=== PATIENT | female | born 1935 | race Caucasian/White ===

== ENCOUNTER 2020-01-25 08:20 | Day surgery (SDC) | payer MEDICARE, OTHER ==
[~2020-01-25 08:20] MED LIST: Lactated Ringers 1,000 ML IV SCH
[2020-01-25] MEDS ORDERED: Propofol 200 MG/20 ML SDV ONE ×2 (09:48→10:34)
--- NOTE | 2020-01-25 11:55 | OR ---
PREOPERATIVE DIAGNOSIS: History of colon polyps. POSTOPERATIVE DIAGNOSIS: Colon polyps. PROCEDURE PERFORMED: Total flexible colonoscopy with biopsies. ANESTHESIA: MAC anesthesia. COMPLICATIONS: None apparent. BLOOD LOSS: Minimal. FINDINGS: Rectal polyps x4, 1-2 mm, cold forceps. START TIME: 1025. CECUM TIME: 1035. STOP TIME: 1049. BOWEL PREP: [place] class 3. INDICATION FOR PROCEDURE: Ms. Stevenson is an 84-year-old female who has a history of colon polyps. Her last scope was 4 years ago in [place] for which we do not have any records. She does not have bloody or dark black stools, but does have some chronic constipation. Her grandmother had colorectal cancer in her 80s. DETAILS OF PROCEDURE: After informed consent was obtained, the patient was brought to the procedure room and placed in left lateral decubitus position. MAC anesthesia was induced by Anesthesia colleagues. The colonoscope was introduced into the rectum and advanced all the way to the cecum. She had a somewhat redundant colon and so brief abdominal pressure was used for assistance in reaching the cecum. The appendiceal orifice and ileocecal valve were photographed. The colonoscope was then slowly withdrawn. No pathology was identified other than what is mentioned in the findings section. A retroflexed view was obtained and the colonoscope was removed. The patient was awoken from anesthesia by Anesthesia colleagues without incident. PATHOLOGY: Colon, rectal polyp Hyperplastic polyps Recommend discontinuing colorectal cancer screening given age of 84. RKM: 01/25/2020 10:54:43 MODL: 01/25/2020 11:16:54 /[id number] MTDBert
--- NOTE | 2020-02-04 08:22 | LETTER ---
02/01/2020 Elvis Elva [address] [place] [address] RE: ELVIS KEE ELVA : 1935 Dear Ms. Dixonalicia: I am writing to inform you of the pathology results from your recent colonoscopy. You had 4 hyperplastic polyps. Hyperplastic polyps are completely benign and are not considered precancerous. Given your age of 84, I recommend that you discontinue colorectal cancer screening. I do not feel that additional screening colonoscopies are necessary. If you have any questions about this, you may call me at the [facility] or discuss this with your primary care provider. Warmest regards,
== END 2020-01-25 11:41 | disposition home or self-care (01) ==
LOC: VM.SDS 08:20
PROVIDERS: ATTEND Student in an Organized Health Care Education/Training Program
DX: Z12.11 Encounter for screening for malignant neoplasm of colon (principal); K62.1 Rectal polyp; E03.4 Atrophy of thyroid (acquired); K59.09 Other constipation; K57.30 Diverticulosis of large intestine without perforation or abscess without bleeding; E78.49 Other hyperlipidemia; Z01.812 Encounter for preprocedural laboratory examination; Z20.828 Contact with and (suspected) exposure to other viral communicable diseases; Z79.899 Other long term (current) drug therapy; Z79.82 Long term (current) use of aspirin; Z86.73 Personal history of transient ischemic attack (TIA), and cerebral infarction without residual deficits; Z88.8 Allergy status to other drugs, medicaments and biological substances; Z98.890 Other specified postprocedural states
CPT/HCPCS: 00812; 45380; J2704; J7120; U0002; 88305

== ENCOUNTER 2020-07-14 18:51 | Emergency (ER) | payer MEDICARE, OTHER ==
[2020-07-14] MEDS ORDERED: Sodium Chloride 0.9% 10 ML Syringe FLUSH PRN (19:25)
[2020-07-14] MEDS ORDERED: LORazepam 2 MG/ML SDV IVPUSH ONE (19:27)
[2020-07-14] MEDS ORDERED: Meclizine 25 MG Tab PO ONE (19:28)
[2020-07-14 20:02] LABS: PTT,PARTIAL THROMBOPLSTIN TIME 23.2 SEC (25.6-32.8)
[2020-07-14 20:16] LABS: CHLORIDE,CL 105 mmol/L (98-107); SODIUM,NA 142 mmol/L (136-145)
[2020-07-14 20:21] LABS: ANION GAP 11.6 mmol/L (5-15)
--- NOTE | 2020-07-14 20:28 | EDM.PDOC ---
ED HPI GENERAL MEDICAL PROBLEM - General Chief Complaint: Cardiovascular Problem Stated Complaint: DOESN'T FELL GOOD Time Seen by Provider: 07/14/20 18:55 Source of Information: Reports: Patient History Limitations: Reports: No Limitations - History of Present Illness INITIAL COMMENTS - FREE TEXT/NARRATIVE: Pt. presents to ER with complaints of vertigo that started this evening. Pt. states that she has never experienced this is the past. Denies any chest pain or shortness of breath. No palpitations. Denies any nausea, vomiting, or diarrhea. Pt. states that she has a history of TIA in the past. Denies any numbness/tingling in extremities. No problems with speech/ambulation. Denies any vision loss or change. Pt. denies any GIMENEZ or orthopnea. She does have a history of dyslipidemia. Onset: Today Onset Date: 07/14/20 Location: Reports: Generalized Associated Symptoms: Denies: Confusion, Chest Pain, Diaphoresis, Fever/Chills, Headaches, Loss of Appetite, Nausea/Vomiting, Shortness of Breath, Syncope - Related Data Allergies Allergy/AdvReac Type Severity Reaction Status Date / Time simvastatin Allergy Muscle Verified 01/25/20 08:39 Aches Home Meds: Home Meds Aspirin [Aspirin EC] 81 mg PO DAILY 01/03/20 [History] Cholecalciferol (Vitamin D3) [Vitamin D3] 1,000 unit PO DAILY 01/03/20 [History] Cider Vinegar [Apple Cider Vinegar] 500 mg PO DAILY 01/03/20 [History] Cinnamon Bark [Cinnamon] 500 mg PO DAILY 01/03/20 [History] Levothyroxine [Synthroid] 100 mcg PO ACBREAKFAST 01/03/20 [History] Lutein/Minerals/Vit A,C & E [Ocuvite] 1 tab PO DAILY 01/03/20 [History] Magnesium 200 mg PO DAILY 01/03/20 [History] Multivitamin [Multivitamins] 1 each PO DAILY 01/03/20 [History] Non-Formulary Medication [NF Drug] 1 each PO DAILY 01/03/20 [History] Ubidecarenone [Co Q-10] 200 mg PO DAILY 01/03/20 [History] Acetaminophen 500 mg PO Q4H PRN 06/30/20 [History] Rosuvastatin [Crestor] 5 mg PO DAILY 06/30/20 [History] Past Medical History Cardiovascular History: Reports: High Cholesterol Gastrointestinal History: Reports: Colon Polyp, Diverticulosis Neurological History: Reports: TIA Endocrine/Metabolic History: Reports: Hypothyroidism - Past Surgical History HEENT Surgical History: Reports: Cataract Surgery Female Surgical History: Reports: Breast Biopsy, Hysterectomy Endocrine Surgical History: Reports: Thyroidectomy Neurological Surgical History: Reports: Other (See Below) 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 Denies: Fever, Chills, Malaise, Weakness, Fatigue HEENT: Reports: Vertigo, Other (complains of R sided ear fullness.) Cardiovascular: Reports: No Symptoms. Denies: Chest Pain, Claudication, Dyspnea on Exertion, Edema, Lightheadedness, Orthopnea, Palpitations, PND Endocrine: Reports: No Symptoms GI/Abdominal: Reports: No Symptoms : Reports: No Symptoms Musculoskeletal: Reports: No Symptoms Skin: Reports: No Symptoms Neurological: Reports: No Symptoms Psychiatric: Reports: No Symptoms Hematologic/Lymphatic: Reports: No Symptoms Immunologic: Reports: No Symptoms ED EXAM, GENERAL - Physical Exam Exam: See Below Exam Limited By: No Limitations General Appearance: Alert, WD/WN, No Apparent Distress Nose: Normal Inspection, Normal Mucosa, No Blood Throat/Mouth: Normal Inspection, Normal Lips, Normal Teeth, Normal Gums, Normal Oropharynx, Normal Voice Head: Atraumatic, Normocephalic Neck: Normal Inspection, Supple, Non-Tender, Full Range of Motion Respiratory/Chest: No Respiratory Distress, Lungs Clear, Normal Breath Sounds, No Accessory Muscle Use, Chest Non-Tender Cardiovascular: Normal Peripheral Pulses, Regular Rate, Rhythm, No Edema, No JVD, No Murmur Peripheral Pulses: 4+: Radial (R) GI/Abdominal: Soft, Non-Tender, No Distention, No Mass (Female) Exam: Deferred Rectal (Female) Exam: Deferred Back Exam: Normal Inspection, Full Range of Motion Extremities: Normal Inspection, Normal Range of Motion, Non-Tender, No Pedal Edema, Normal Capillary Refill Neurological: Alert, Oriented, CN II-XII Intact, Normal Cognition, Normal Gait, Normal Reflexes, No Motor/Sensory Deficits, Other (speech is fluent. No pronator drift.) Psychiatric: Normal Affect, Normal Mood Skin Exam: Warm, Dry, Intact, Normal Color, No Rash Lymphatic: No Adenopathy Course - Vital Signs Last Recorded V/S: Last Vital Signs Temp 36.8 C 07/14/20 18:55 Pulse 64 07/14/20 18:55 Resp 14 07/14/20 18:55 BP 170/80 H 07/14/20 18:55 Pulse Ox 97 07/14/20 18:55 - Orders/Labs/Meds Orders: Active Orders 24 hr Category Date Time Status EKG Documentation Completion [RC] STAT Care 07/14/20 19:25 Active Chest 1V Frontal [CR] Stat Exams 07/14/20 21:01 Ordered Head wo Cont [CT] Stat Exams 07/14/20 19:25 Stop Req CBC W/O DIFF,HEMOGRAM [HEME] Q3D Lab 07/15/20 07:00 Ordered CBC W/O DIFF,HEMOGRAM [HEME] Q3D Lab 07/18/20 07:00 Ordered CBC W/O DIFF,HEMOGRAM [HEME] Q3D Lab 07/21/20 07:00 Ordered CBC W/O DIFF,HEMOGRAM [HEME] Q3D Lab 07/24/20 07:00 Ordered CBC W/O DIFF,HEMOGRAM [HEME] Q3D Lab 07/27/20 07:00 Ordered CBC W/O DIFF,HEMOGRAM [HEME] Q3D Lab 07/30/20 07:00 Ordered CBC W/O DIFF,HEMOGRAM [HEME] Q3D Lab 08/02/20 07:00 Ordered CORONAVIRUS COVID-19 RAPID [MOLEC] Stat Lab 07/14/20 21:00 Ordered Heparin Sodium/0.45% NaCl [Heparin 25,000 Units in 1/2 Med 07/14/20 21:01 Active NS 500 ML] 25,000 units in 500 ml IV SEECOMMENT Sodium Chloride 0.9% [Saline Flush] Med 07/14/20 19:25 Active 10 ml FLUSH ASDIRECTED PRN Peripheral IV Insertion Adult [OM.PC] Routine Oth 07/14/20 19:26 Ordered Medication Orders Heparin Sodium/Sodium Chloride (Heparin 25,000 Units In 1/2 Ns 500 Ml) 25,000 units in 500 mls @ 20 mls/hr IV SEECOMMENT STA; Protocol Stop: 05/11/21 22:00 Sodium Chloride (Sodium Chloride 0.9% 10 Ml Syringe) 10 ml FLUSH ASDIRECTED PRN PRN Reason: Keep Vein Open Labs: Laboratory Tests 07/14/20 07/14/20 07/14/20 Range/Units 19:37 19:37 19:37 WBC 5.1 (4.0-10.0) x10^3/uL RBC 4.06 (4.00-5.50) x10^6/uL Hgb 12.9 (12.0-16.0) g/dL Hct 38.5 (33.0-47.0) % MCV 94.8 H (78.0-93.0) fL MCH 31.8 (26.0-32.0) pg MCHC 33.5 (32.0-36.0) g/dL RDW Coeff of [place] 13.9 (10.0-15.0) % Plt Count 238 (130-400) x10^3/uL Neut % (Auto) 51.6 (50.0-80.0) % Lymph % (Auto) 36.4 (25.0-50.0) % [place] % (Auto) 9.0 (2.0-11.0) % Eos % (Auto) 2.0 (0.0-4.0) % Baso % (Auto) 1.0 (0.2-1.2) % PT 11.0 (9.9-12.5) SEC INR 1.0 L (2.0-3.5) APTT 23.2 L (25.6-32.8) SEC Sodium 142 (136-145) mmol/L Potassium 3.6 (3.5-5.1) mmol/L Chloride 105 (98-107) mmol/L Carbon Dioxide 29 (21-32) mmol/L Anion Gap 11.6 (5-15) mmol/L BUN 19 H (7-18) mg/dL Creatinine 1.1 H (0.55-1.02) mg/dL Est Cr Clr Drug Dosing 33.46 mL/min Estimated GFR (MDRD) 47 Glucose 137 H (70-99) mg/dL Calcium 9.0 (8.5-10.1) mg/dL Corrected Calcium 9.4 (8.5-10.1) mg/dL Magnesium 2.0 (1.8-2.4) mg/dL Total Bilirubin 0.5 (0.2-1.0) mg/dL AST 21 (15-37) U/L ALT 32 (14-59) U/L Alkaline Phosphatase 61 (46-116) U/L Troponin I High Sens 87 H* (<=51) ng/L C-Reactive Protein < 0.2 (<=0.9) mg/dL Total Protein 6.6 (6.4-8.2) g/dL Albumin 3.5 (3.4-5.0) g/dL Globulin 3.1 Albumin/Globulin Ratio 1.13 Meds: Medications Generic Name Dose Route Start Last Admin Trade Name Freq PRN Reason Stop Dose Admin Heparin Sodium/Sodium Chloride 25,000 units in 500 mls @ 20 mls/hr 07/14/20 21:01 Heparin 25,000 Units In 1/2 Ns 500 Ml IV 07/15/20 22:00 SEECOMMENT STA Protocol 1,000 UNITS/HR Sodium Chloride 10 ml 07/14/20 19:25 Sodium Chloride 0.9% 10 Ml Syringe FLUSH ASDIRECTED PRN Keep Vein Open Discontinued Medications Generic Name Dose Route Start Last Admin Trade Name Freq PRN Reason Stop Dose Admin Aspirin 324 mg 07/14/20 20:31 Aspirin 81 Mg Tab.Chew PO 07/14/20 20:32 ONETIME ONE Heparin Sodium (Porcine) 4,000 units 07/14/20 21:01 Heparin Sodium 5,000 Units/Ml Vial IVPUSH 07/14/20 21:02 .BOLUS ONE Lorazepam 1 mg 07/14/20 19:27 Lorazepam 2 Mg/Ml Sdv IVPUSH 07/14/20 19:28 STAT ONE Meclizine HCl 25 mg 07/14/20 19:28 Meclizine 25 Mg Tab PO 07/14/20 19:29 DAILY ONE Departure - Departure Time of Disposition: 21:16 Disposition: DC/Tfer to Acute Hospital 02 Reason for Transfer *Q: Other Clinical Impression: NSTEMI (non-ST elevated myocardial infarction) Referrals: Cynthia Mackey DO [Primary Care Provider] - Forms: ED Department Discharge Sepsis Event Note (ED) - Evaluation Sepsis Screening Result: No Definite Risk - Focused Exam Vital Signs: Vital Signs Temp Pulse Resp BP Pulse Ox 07/14/20 18:55 36.8 C 64 14 170/80 H 97 - Problem List Review Problem List Initiated/Reviewed/Updated: Yes - My Orders Last 24 Hours: My Active Orders 07/14/20 19:25 EKG Documentation Completion [RC] STAT Head wo Cont [CT] Stat Sodium Chloride 0.9% [Saline Flush] 10 ml FLUSH ASDIRECTED PRN 07/14/20 19:26 Peripheral IV Insertion Adult [OM.PC] Routine 07/14/20 21:00 CORONAVIRUS COVID-19 RAPID [MOLEC] Stat 07/14/20 21:01 Chest 1V Frontal [CR] Stat Heparin Sodium/0.45% NaCl [Heparin 25,000 Units in 1/2 NS 500 ML] 25,000 units in 500 ml IV SEECOMMENT 07/15/20 07:00 CBC W/O DIFF,HEMOGRAM [HEME] Q3D 07/18/20 07:00 CBC W/O DIFF,HEMOGRAM [HEME] Q3D 07/21/20 07:00 CBC W/O DIFF,HEMOGRAM [HEME] Q3D 07/24/20 07:00 CBC W/O DIFF,HEMOGRAM [HEME] Q3D 07/27/20 07:00 CBC W/O DIFF,HEMOGRAM [HEME] Q3D 07/30/20 07:00 CBC W/O DIFF,HEMOGRAM [HEME] Q3D 08/02/20 07:00 CBC W/O DIFF,HEMOGRAM [HEME] Q3D - Assessment/Plan Last 24 Hours: My Active Orders 07/14/20 19:25 EKG Documentation Completion [RC] STAT Head wo Cont [CT] Stat Sodium Chloride 0.9% [Saline Flush] 10 ml FLUSH ASDIRECTED PRN 07/14/20 19:26 Peripheral IV Insertion Adult [OM.PC] Routine 07/14/20 21:00 CORONAVIRUS COVID-19 RAPID [MOLEC] Stat 07/14/20 21:01 Chest 1V Frontal [CR] Stat Heparin Sodium/0.45% NaCl [Heparin 25,000 Units in 1/2 NS 500 ML] 25,000 units in 500 ml IV SEECOMMENT 07/15/20 07:00 CBC W/O DIFF,HEMOGRAM [HEME] Q3D 07/18/20 07:00 CBC W/O DIFF,HEMOGRAM [HEME] Q3D 07/21/20 07:00 CBC W/O DIFF,HEMOGRAM [HEME] Q3D 07/24/20 07:00 CBC W/O DIFF,HEMOGRAM [HEME] Q3D 07/27/20 07:00 CBC W/O DIFF,HEMOGRAM [HEME] Q3D 07/30/20 07:00 CBC W/O DIFF,HEMOGRAM [HEME] Q3D 08/02/20 07:00 CBC W/O DIFF,HEMOGRAM [HEME] Q3D Plan: [place] has no available bed space. Pt. was accepted at [facility] in [place] by Dr. Wheatley. Pt. is a code 1. Pt. was started on heparin drip at 1000u/hr and was given a heparin bolus at 4000 u IV. Covid 19 and chest x-ray results are pending.
[2020-07-14] MEDS ORDERED: Aspirin 81 MG Tab.Chew PO ONE (20:31)
[2020-07-14] MEDS ORDERED: Heparin Sodium 5,000 Units/ML Vial IVPUSH ONE (21:01)
[2020-07-14] MEDS ORDERED: Heparin Sodium/0.45% NaCl 25,000 UNITS/500 ML BAG IV STA (21:01)
--- NOTE | 2020-07-15 07:38 | CR ---
[id number] RAD/RAD Chest Portable EXAM: PORTABLE CHEST INDICATION: NSTEMI COMPARISON: None. DISCUSSION: There is cardiomegaly without evidence of edema. Mild linear scarring, atelectasis or fibrosis in the lung bases. Hyperinflation suggests underlying COPD. No effusions. IMPRESSION: 1. Cardiomegaly without evidence of congestive heart failure. Shawn Lincoln MD 07/15/20 0737 Thank you for allowing us to participate in the care of your patient.
== END 2020-07-14 22:00 | disposition short-term general hospital (02) ==
LOC: VM.ED 18:51
DX: I21.4 Non-ST elevation (NSTEMI) myocardial infarction (principal); E03.9 Hypothyroidism, unspecified; E78.00 Pure hypercholesterolemia, unspecified; Z88.8 Allergy status to other drugs, medicaments and biological substances; Z79.82 Long term (current) use of aspirin; Z20.822 Contact with and (suspected) exposure to COVID-19; Z79.899 Other long term (current) drug therapy
CPT/HCPCS: 36415; 71045; 80053; 83735; 84484; 85025; 85610; 85730; 86140; 93005; 96365; 96375; 99284; 99285-25; A9270-GY; J1644; J2060; U0002

== ENCOUNTER 2022-05-27 08:48 | Inpatient (IN) | payer MEDICARE, OTHER ==
[2022-05-27 09:34] LABS: ANION GAP 12.3 mmol/L (5-15); CHLORIDE,CL 106 mmol/L (98-107); ESTIMATED GFR 55 mL/min (>=60); SODIUM,NA 141 mmol/L (136-145)
[2022-05-27] MEDS: Ondansetron 4 MG/2 ML SDV ONE ×3 (09:45→11:09)
[2022-05-27] MEDS ORDERED: Iopamidol 755 Mg/ML 100 ML Bottle IVPUSH ONE (09:57)
[2022-05-27] MEDS ORDERED: Ondansetron 4 MG/2 ML SDV IVPUSH ONE (10:21)
[2022-05-27] MEDS ORDERED: Potassium Chloride 10 MEQ Tab.ER PO ONE (13:15)
[2022-05-27 15:35] LABS: ANION GAP 13.8 mmol/L (5-15)
[2022-05-27] MEDS: Acetaminophen 325 MG Tab PO PRN (17:30)
[2022-05-27] MEDS: Omeprazole 20 MG Cap.CR PO SCH (20:06)
[2022-05-27] MEDS: Ondansetron 4 MG Tab.DIS PO PRN (20:06)
[2022-05-28] MEDS: Acetaminophen 500 MG Tab PO PRN ×2 (00:46→13:27)
[2022-05-28] MEDS: Omeprazole 20 MG Cap.CR PO SCH ×2 (06:37→16:29)
[2022-05-28] MEDS: Levothyroxine 88 MCG Tab PO SCH (06:37)
[2022-05-28] MEDS ORDERED: Flumazenil 0.1 MG/ML 5 ML MDV IVPUSH PRN (08:23)
[2022-05-28] MEDS ORDERED: LORazepam 0.5 MG Tab PO PRN (08:24)
[2022-05-28] MEDS ORDERED: Ondansetron 4 MG/2 ML SDV IVPUSH PRN (08:24)
[2022-05-28] MEDS ORDERED: Ketorolac 15 MG/ML SDV IVPUSH PRN (08:25)
[2022-05-28] MEDS: Sertraline 25 MG Tab PO SCH (08:40)
[2022-05-28] MEDS: Aspirin 81 MG Tab.EC PO SCH (08:40)
[2022-05-28] MEDS: Ondansetron 4 MG Tab.DIS PO PRN (08:53)
[2022-05-28] MEDS: Acetaminophen 325 MG Tab PO PRN (08:53)
[2022-05-28] MEDS ORDERED: Rosuvastatin 20 MG Tab PO SCH (09:00)
[2022-05-28] MEDS ORDERED: Sertraline 25 MG Tab PO SCH (09:00)
[2022-05-28] MEDS: Sodium Chloride 0.9% 1,000 ML IV SCH ×2 (10:24→17:05)
[2022-05-28] MEDS: atorvaSTATin 10 MG Tab PO SCH (12:49)
[2022-05-28] MEDS ORDERED: HYDROmorphone 0.5 MG/0.5 ML Syringe IVPUSH PRN (13:44)
[2022-05-28] MEDS: HYDROmorphone 0.5 MG/0.5 ML Syringe IVPUSH SCH (20:35)
[2022-05-29] MEDS: Levothyroxine 88 MCG Tab PO SCH (06:29)
[2022-05-29] MEDS: Omeprazole 20 MG Cap.CR PO SCH ×2 (06:29→17:08)
[2022-05-29] MEDS: Sodium Chloride 0.9% 1,000 ML IV SCH (07:21)
[2022-05-29] MEDS: Aspirin 81 MG Tab.EC PO SCH (08:39)
[2022-05-29] MEDS: atorvaSTATin 10 MG Tab PO SCH (08:39)
[2022-05-29] MEDS: Acetaminophen 500 MG Tab PO PRN (08:42)
[2022-05-29] MEDS: Sertraline 25 MG Tab PO SCH (08:45)
[2022-05-29] MEDS: HYDROmorphone 0.5 MG/0.5 ML Syringe IVPUSH SCH ×2 (08:47→20:20)
[2022-05-30] MEDS: Omeprazole 20 MG Cap.CR PO SCH ×2 (07:00→17:19)
[2022-05-30] MEDS: Levothyroxine 88 MCG Tab PO SCH (07:00)
[2022-05-30] MEDS: Sertraline 25 MG Tab PO SCH (08:16)
[2022-05-30] MEDS: Aspirin 81 MG Tab.EC PO SCH (08:16)
[2022-05-30] MEDS: Acetaminophen 500 MG Tab PO PRN (08:17)
[2022-05-30] MEDS: atorvaSTATin 10 MG Tab PO SCH (08:17)
[2022-05-30 09:29] LABS: ANION GAP 13.4 mmol/L (5-15)
[2022-05-30] MEDS: HYDROmorphone 0.5 MG/0.5 ML Syringe IVPUSH SCH ×2 (10:34→20:43)
[2022-05-30] MEDS: NS + KCl 20mEq/L 1,000 ML IV SCH (12:20)
[2022-05-30] MEDS ORDERED: Polyethylene Glycol 3350 Powder 17 GM Packet PO ONE (13:25)
[2022-05-30] MEDS: Docusate Sodium 100 MG Cap PO SCH (20:42)
[2022-05-31] MEDS: NS + KCl 20mEq/L 1,000 ML IV SCH (02:08)
[2022-05-31] MEDS: Levothyroxine 88 MCG Tab PO SCH (06:30)
[2022-05-31] MEDS: Omeprazole 20 MG Cap.CR PO SCH (06:30)
[2022-05-31] MEDS ORDERED: Potassium Chloride 10 MEQ Tab.ER PO ONE (08:19)
[2022-05-31] MEDS: Docusate Sodium 100 MG Cap PO SCH (08:21)
[2022-05-31] MEDS: Aspirin 81 MG Tab.EC PO SCH (08:22)
[2022-05-31] MEDS: Sertraline 25 MG Tab PO SCH (08:22)
[2022-05-31] MEDS: atorvaSTATin 10 MG Tab PO SCH (08:22)
[2022-05-31] MEDS ORDERED: traMADol 50 MG Tab PO PRN (08:26)
[2022-05-31] MEDS ORDERED: Bisacodyl 10 MG Supp RECTAL ONE (08:28)
[2022-05-31] MEDS ORDERED: Sodium Phosphate,Monobasic/Sodium Phosphate,Dibasic Enema 133 ML Bottle RECTAL PRN (08:29)
[2022-05-31] MEDS ORDERED: predniSONE 20 MG Tab PO SCH (09:00)
[2022-05-31] MEDS ORDERED: Sucralfate 1 GM Tab PO SCH (09:45)
[2022-05-31] MEDS: HYDROmorphone 0.5 MG/0.5 ML Syringe IVPUSH SCH (11:06)
== END 2022-05-31 13:15 | disposition swing bed (61) | DRG 205 ==
LOC: VM.ED 08:48 → SUPCPDRO 08:48 → VM.MS 12:45 → OBSVTOIN 05-28 17:44
PROVIDERS: ADMIT Physician Assistant; ATTEND Internal Medicine
DX: S22.32XA Fracture of one rib, left side, initial encounter for closed fracture (principal); J96.01 Acute respiratory failure with hypoxia; E89.0 Postprocedural hypothyroidism; E87.1 Hypo-osmolality and hyponatremia; M54.2 Cervicalgia; F32.A Depression, unspecified; E03.9 Hypothyroidism, unspecified; Z66 Do not resuscitate; E78.00 Pure hypercholesterolemia, unspecified; F41.1 Generalized anxiety disorder; R00.1 Bradycardia, unspecified; W18.30XA Fall on same level, unspecified, initial encounter; I95.1 Orthostatic hypotension; E87.6 Hypokalemia; Z86.73 Personal history of transient ischemic attack (TIA), and cerebral infarction without residual deficits; Z88.8 Allergy status to other drugs, medicaments and biological substances; Z79.82 Long term (current) use of aspirin; Z79.890 Hormone replacement therapy; Z79.899 Other long term (current) drug therapy; Y92.512 Supermarket, store or market as the place of occurrence of the external cause; Z98.49 Cataract extraction status, unspecified eye; Z90.710 Acquired absence of both cervix and uterus; Z98.890 Other specified postprocedural states; Z86.010 Personal history of colon polyps; I25.2 Old myocardial infarction
CPT/HCPCS: 36415 ×2; 70450; 70496; 71045; 71101; 72125; 80048 ×2; 80053; 83735; 84443; 84484 ×2; 85025 ×2; 85610; 85652; 85730; 86140; 93005; 93010; 94760; 96361; 96374; 96375; 99223; 99285; A9270 ×14; G0378 ×3; J1170; J1885; J2405; J3360; J7030 ×2; Q9967; 71046; 97110-GP; 97116-GP; 97161-GP; 97165-GO; J3480; J7512

== ENCOUNTER 2022-05-31 10:13 | Inpatient (IN) | payer MEDICARE, OTHER ==
[2022-05-31] MEDS ORDERED: Sodium Phosphate,Monobasic/Sodium Phosphate,Dibasic Enema 133 ML Bottle RECTAL PRN (11:16)
[2022-05-31] MEDS ORDERED: LORazepam 0.5 MG Tab PO PRN (11:16)
[2022-05-31] MEDS ORDERED: Ondansetron 4 MG Tab.DIS PO PRN (11:16)
[2022-05-31] MEDS: Omeprazole 20 MG Cap.CR PO SCH (17:35)
[2022-05-31] MEDS: Sucralfate 1 GM Tab PO SCH (17:35)
[2022-05-31] MEDS: Docusate Sodium 100 MG Cap PO SCH (20:48)
[2022-06-01] MEDS: Levothyroxine 88 MCG Tab PO SCH (06:26)
[2022-06-01] MEDS: Sucralfate 1 GM Tab PO SCH (06:26)
[2022-06-01] MEDS: Omeprazole 20 MG Cap.CR PO SCH ×3 (06:26→16:37)
[2022-06-01] MEDS: Aspirin 81 MG Tab.EC PO SCH (08:33)
[2022-06-01] MEDS: atorvaSTATin 10 MG Tab PO SCH (08:34)
[2022-06-01] MEDS: predniSONE 20 MG Tab PO SCH (08:37)
[2022-06-01] MEDS: Docusate Sodium 100 MG Cap PO SCH ×2 (08:38→20:04)
[2022-06-01] MEDS ORDERED: Sertraline 25 MG Tab PO SCH (09:00)
[2022-06-01] MEDS: Acetaminophen 500 MG Tab PO PRN (20:07)
[2022-06-02] MEDS: Omeprazole 20 MG Cap.CR PO SCH (06:02)
[2022-06-02] MEDS: Levothyroxine 88 MCG Tab PO SCH (06:02)
[2022-06-02 07:23] LABS: CHLORIDE,CL 93 mmol/L (98-107); SODIUM,NA 130 mmol/L (136-145)
[2022-06-02 07:25] LABS: ANION GAP 12.5 mmol/L (5-15); ESTIMATED GFR 85 mL/min (>=60)
[2022-06-02] MEDS: atorvaSTATin 10 MG Tab PO SCH (08:24)
[2022-06-02] MEDS: Docusate Sodium 100 MG Cap PO SCH ×2 (08:24→20:25)
[2022-06-02] MEDS: Aspirin 81 MG Tab.EC PO SCH (08:24)
[2022-06-02] MEDS: predniSONE 20 MG Tab PO SCH (08:26)
[2022-06-02] MEDS: Acetaminophen 500 MG Tab PO PRN (08:28)
[2022-06-02] MEDS ORDERED: DULoxetine 20 MG Cap PO SCH (09:00)
[2022-06-02] MEDS: Sucralfate 1 GM Tab PO SCH ×2 (14:20→18:12)
[2022-06-02] MEDS: amLODIPine 5 MG Tab PO SCH (18:12)
[2022-06-02] MEDS ORDERED: hydrALAZINE 20 MG/ML SDV IVPUSH PRN (18:22)
[2022-06-02] MEDS ORDERED: Sodium Chloride 0.9% 10 ML Syringe FLUSH PRN (18:34)
[2022-06-02] MEDS: traMADol 50 MG Tab PO PRN (22:44)
[2022-06-03] MEDS: Acetaminophen 500 MG Tab PO PRN (00:14)
[2022-06-03] MEDS: Levothyroxine 88 MCG Tab PO SCH (06:28)
[2022-06-03] MEDS: Sucralfate 1 GM Tab PO SCH ×2 (06:28→10:47)
[2022-06-03 07:09] LABS: CHLORIDE,CL 90 mmol/L (98-107)
[2022-06-03 07:11] LABS: ANION GAP 12.8 mmol/L (5-15); SODIUM,NA 125 mmol/L (136-145)
[2022-06-03 07:12] LABS: ESTIMATED GFR 88 mL/min (>=60)
[2022-06-03] MEDS: atorvaSTATin 10 MG Tab PO SCH (08:30)
[2022-06-03] MEDS: Docusate Sodium 100 MG Cap PO SCH (08:31)
[2022-06-03] MEDS: traMADol 50 MG Tab PO PRN (08:31)
[2022-06-03] MEDS: amLODIPine 5 MG Tab PO SCH (08:33)
== END 2022-06-03 10:55 | disposition critical access hospital (66) | DRG 560 ==
LOC: VM.MS 13:15
PROVIDERS: ADMIT Internal Medicine; ATTEND Internal Medicine
DX: S22.39XD Fracture of one rib, unspecified side, subsequent encounter for fracture with routine healing (principal); E87.1 Hypo-osmolality and hyponatremia; F41.1 Generalized anxiety disorder; E03.9 Hypothyroidism, unspecified; R00.1 Bradycardia, unspecified; R51.9 Headache, unspecified; E87.6 Hypokalemia; F32.A Depression, unspecified; E78.49 Other hyperlipidemia; Z79.82 Long term (current) use of aspirin; Z79.899 Other long term (current) drug therapy; S06.301D Unspecified focal traumatic brain injury with loss of consciousness of 30 minutes or less, subsequent encounter
CPT/HCPCS: 36415; 70450; 80048; 84300; 85025; 85652; 86140; 97116-GP; 97140-GP; 97535-GO; A9270-GY; J0360

== ENCOUNTER 2022-06-03 09:56 | Inpatient (IN) | payer MEDICARE, OTHER ==
[2022-06-03] MEDS ORDERED: Sodium Chloride 0.9% 10 ML Syringe FLUSH PRN (11:24)
[2022-06-03] MEDS ORDERED: Ondansetron 4 MG Tab.DIS PO PRN (11:24)
[2022-06-03] MEDS ORDERED: Acetaminophen 500 MG Tab PO PRN (11:24)
[2022-06-03] MEDS ORDERED: LORazepam 0.5 MG Tab PO PRN (11:24)
[2022-06-03] MEDS ORDERED: traMADol 50 MG Tab PO PRN (11:24)
[2022-06-03] MEDS: Sucralfate 1 GM Tab PO SCH (17:26)
[2022-06-03] MEDS: Docusate Sodium 100 MG Cap PO SCH (21:03)
[2022-06-04] MEDS: Sucralfate 1 GM Tab PO SCH ×3 (06:24→16:50)
[2022-06-04] MEDS: Levothyroxine 88 MCG Tab PO SCH (06:24)
[2022-06-04 07:00] LABS: ANION GAP 7.7 mmol/L (5-15)
[2022-06-04] MEDS: amLODIPine 5 MG Tab PO SCH (09:24)
[2022-06-04] MEDS: atorvaSTATin 10 MG Tab PO SCH (09:24)
[2022-06-04] MEDS: Docusate Sodium 100 MG Cap PO SCH ×2 (09:24→20:01)
[2022-06-04] MEDS: traMADol 50 MG Tab PO SCH ×2 (09:25→20:01)
[2022-06-04] MEDS: Sennosides 8.6 MG Tab PO SCH ×2 (09:26→20:01)
[2022-06-04] MEDS: Sodium Chloride 3% 500 ML IV SCH ×2 (09:31→19:46)
[2022-06-04] MEDS: Sodium Chloride/Potassium Chloride Tab PO SCH ×2 (14:42→20:01)
[2022-06-04] MEDS: Polyethylene Glycol 3350 Powder 17 GM Packet PO SCH (16:50)
[2022-06-04] MEDS: hydrALAZINE 20 MG/ML SDV IVPUSH PRN (18:13)
[2022-06-04] MEDS: Sodium Chloride 0.9% 10 ML Syringe FLUSH PRN (18:22)
[2022-06-05] MEDS: Sucralfate 1 GM Tab PO SCH ×3 (06:36→16:51)
[2022-06-05] MEDS: Levothyroxine 88 MCG Tab PO SCH (06:36)
[2022-06-05 08:09] LABS: ANION GAP 12.6 mmol/L (5-15)
[2022-06-05] MEDS: amLODIPine 5 MG Tab PO SCH (08:30)
[2022-06-05] MEDS: atorvaSTATin 10 MG Tab PO SCH (08:31)
[2022-06-05] MEDS: traMADol 50 MG Tab PO SCH ×2 (08:31→20:19)
[2022-06-05] MEDS: Sodium Chloride/Potassium Chloride Tab PO SCH ×2 (08:31→20:18)
[2022-06-05] MEDS: Sennosides 8.6 MG Tab PO SCH ×2 (08:33→20:19)
[2022-06-05] MEDS: Polyethylene Glycol 3350 Powder 17 GM Packet PO SCH (08:33)
[2022-06-05] MEDS: Docusate Sodium 100 MG Cap PO SCH ×2 (08:33→20:21)
[2022-06-05] MEDS ORDERED: Bisacodyl 10 MG Supp RECTAL PRN (16:14)
[2022-06-05] MEDS: hydrALAZINE 20 MG/ML SDV IVPUSH PRN (21:19)
[2022-06-05] MEDS: Sodium Chloride 0.9% 10 ML Syringe FLUSH PRN (21:20)
[2022-06-06] MEDS: Levothyroxine 88 MCG Tab PO SCH (06:30)
[2022-06-06] MEDS: Sucralfate 1 GM Tab PO SCH ×3 (06:30→18:19)
[2022-06-06 08:15] LABS: ANION GAP 14.8 mmol/L (5-15)
[2022-06-06] MEDS: Sodium Chloride/Potassium Chloride Tab PO SCH ×2 (08:38→20:09)
[2022-06-06] MEDS: Sennosides 8.6 MG Tab PO SCH ×2 (08:39→20:09)
[2022-06-06] MEDS: atorvaSTATin 10 MG Tab PO SCH (08:39)
[2022-06-06] MEDS: traMADol 50 MG Tab PO SCH ×3 (08:39→20:12)
[2022-06-06] MEDS: Docusate Sodium 100 MG Cap PO SCH ×2 (08:39→20:09)
[2022-06-06] MEDS: Polyethylene Glycol 3350 Powder 17 GM Packet PO SCH (08:40)
[2022-06-06] MEDS: amLODIPine 5 MG Tab PO SCH (08:41)
[2022-06-07] MEDS: Levothyroxine 88 MCG Tab PO SCH (06:08)
[2022-06-07] MEDS: hydrALAZINE 20 MG/ML SDV IVPUSH PRN (06:19)
[2022-06-07] MEDS: Sodium Chloride 0.9% 10 ML Syringe FLUSH PRN ×2 (06:20→09:57)
[2022-06-07] MEDS: Sucralfate 1 GM Tab PO SCH (07:16)
[2022-06-07] MEDS: amLODIPine 5 MG Tab PO SCH (08:04)
[2022-06-07] MEDS: atorvaSTATin 10 MG Tab PO SCH (08:04)
[2022-06-07] MEDS: Sodium Chloride/Potassium Chloride Tab PO SCH ×2 (08:04→18:04)
[2022-06-07] MEDS: Polyethylene Glycol 3350 Powder 17 GM Packet PO SCH (08:05)
[2022-06-07] MEDS: traMADol 50 MG Tab PO SCH (08:05)
[2022-06-07] MEDS: Sennosides 8.6 MG Tab PO SCH (08:05)
[2022-06-07] MEDS: Docusate Sodium 100 MG Cap PO SCH (08:05)
[2022-06-07] MEDS ORDERED: Furosemide 20 MG/2 ML VIAL IV ONE (08:30)
[2022-06-07] MEDS ORDERED: amLODIPine 5 MG Tab PO SCH (17:30)
== END 2022-06-07 17:30 | disposition home health service (06) | DRG 86 ==
LOC: VM.MS 10:55
PROVIDERS: ADMIT Internal Medicine; ATTEND Internal Medicine
DX: S06.301A Unspecified focal traumatic brain injury with loss of consciousness of 30 minutes or less, initial encounter (principal); E22.2 Syndrome of inappropriate secretion of antidiuretic hormone; S22.32XA Fracture of one rib, left side, initial encounter for closed fracture; Z16.39 Resistance to other specified antimicrobial drug; F32.A Depression, unspecified; E78.5 Hyperlipidemia, unspecified; F41.1 Generalized anxiety disorder; K59.00 Constipation, unspecified; W18.30XA Fall on same level, unspecified, initial encounter; E03.9 Hypothyroidism, unspecified; E87.6 Hypokalemia; Z86.73 Personal history of transient ischemic attack (TIA), and cerebral infarction without residual deficits; Z79.82 Long term (current) use of aspirin; Z79.899 Other long term (current) drug therapy; Y92.89 Other specified places as the place of occurrence of the external cause
CPT/HCPCS: 36415; 51798; 70450; 80048; 80053; 82533; 83735; 83880; 83930; 83935; 84295; 85025; 95851-GO; 97112-GP; 97116-GP; 97168-GO; 97530-GO; 97535-GO; A9270-GY; J0360; J1940; J3490; J7131

== ENCOUNTER 2024-01-01 10:16 | Emergency (ER) | payer MEDICARE, OTHER ==
[2024-01-01] MEDS ORDERED: Sodium Chloride 0.9% 10 ML Syringe FLUSH PRN (10:55)
[2024-01-01 11:01] LABS: BASOPHILS PERCENT AUTO 0.6 % (0.2-1.2); EOSINOPHILS ABSOLUTE AUTO 0.1 x10^3/uL (0.0-0.5); EOSINOPHILS PERCENT AUTO 0.7 % (0.0-4.0); HEMATOCRIT 40.7 % (33.0-47.0); HEMOGLOBIN 13.9 g/dL (12.0-16.0); IMMATURE GRAN ABSOLUTE AUTO 0.01 x10^3/uL (0.00-0.07); LYMPHOCYTES ABSOLUTE AUTO 1.4 x10^3/uL (1.0-4.8); LYMPHOCYTES PERCENT AUTO 19.7 % (25.0-50.0); MEAN CORPUSCULAR HEMOGLOBIN 31.9 pg (26.0-32.0); MEAN CORPUSCULAR HGB CONC 34.2 g/dL (32.0-36.0); MEAN CORPUSCULAR VOLUME 93.3 fL (78.0-93.0); MONOCYTES ABSOLUTE AUTO 0.6 x10^3/uL (0.0-0.8); MONOCYTES PERCENT AUTO 8.9 % (2.0-11.0); NEUTROPHILS ABSOLUTE AUTO 4.9 x10^3/uL (1.8-7.7); PLATELET COUNT,PLT 242 x10^3/uL (130-400); RED BLOOD CELL COUNT 4.36 x10^6/uL (4.00-5.50); WHITE BLOOD CELL COUNT,WBC 6.9 x10^3/uL (4.0-10.0)
[2024-01-01] MEDS: Meclizine 25 MG Tab PO ONE ×2 (11:04→12:11)
[2024-01-01] MEDS: LORazepam 2 MG/ML SDV IVPUSH ONE (11:04)
[2024-01-01] MEDS: dimenhyDRINATE 50 MG Tab PO ONE (11:04)
[2024-01-01 11:20] LABS: A/G RATIO 1.15; ALANINE AMINOTRANSFERASE,ALT 23 U/L (14-59); ALBUMIN 3.8 g/dL (3.4-5.0); ALKALINE PHOSPHATASE 72 U/L (46-116); ASPARTATE AMNIOTRANSFERASE,AST 20 U/L (15-37); BILIRUBIN TOTAL 0.6 mg/dL (0.2-1.0); BLOOD UREA NITROGEN,BUN 23 mg/dL (7-18); CALCIUM 9.6 mg/dL (8.5-10.1); CARBON DIOXIDE,CO2 29 mmol/L (21-32); CHLORIDE,CL 104 mmol/L (98-107); CREATININE 0.9 mg/dL (0.55-1.02); EST CRCL DRUG DOSING (CG) 39.63 mL/min; GLUCOSE RANDOM 95 mg/dL (70-99); POTASSIUM,K 3.6 mmol/L (3.5-5.1); PROTEIN TOTAL,TP 7.1 g/dL (6.4-8.2); SODIUM,NA 141 mmol/L (136-145)
[2024-01-01 11:22] LABS: ANION GAP 11.6 mmol/L (5-15); ESTIMATED GFR 62 mL/min (>=60)
[2024-01-01 11:23] LABS: C-REACTIVE PROTEIN < 0.50 mg/dL (<=0.50)
== END 2024-01-01 12:16 | disposition home or self-care (01) ==
LOC: VM.ED 10:16 → SUPCPDRO 10:16 → VM.ED 12:16
DX: R42 Dizziness and giddiness (principal); E78.00 Pure hypercholesterolemia, unspecified; E03.9 Hypothyroidism, unspecified; Z90.710 Acquired absence of both cervix and uterus; Z79.899 Other long term (current) drug therapy; Z88.8 Allergy status to other drugs, medicaments and biological substances
CPT/HCPCS: 70450; 80053; 83735; 84484; 85025; 86140; 93005; 93010; 96374; 99284; A9270; J2060